=== PATIENT | male | born 1965 | race Two or more races ===

== ENCOUNTER 2021-06-20 20:51 | Emergency (ER) | payer SELFPAY ==
[~2021-06-20] VITALS: Ht 177.8 cm; Wt 75.0 kg
--- NOTE | 2021-06-20 21:20 | PHYS DOC ---
Past Medical History Additional Past Medical Histor: GRANULOMA Past Surgical History: Other Additional Past Surgical Histo: TUMOR REMOVAL General Adult EDM: Chief Complaint: NAUSEA/VOMITING/DIARRHEA HPI: HPI: Patient is a 55 year old male presents for evaluation due to nausea vomiting abdominal pain and chest pain. Patient states she woke up 063 0 hours with nausea and vomiting. Patient pain presented to the epigastric region and then radiated up to his chest. Patient has had multiple episodes of vomiting since this a.m. Patient denies any alcohol or drug abuse. Patient's epigastric abdominal pain does not radiate into the abdomen. Patient's chest pain is over the right and left lungs. Patient denies any associated shortness of breath. He has not had any episodes of diarrhea no history of fevers or chills. Patient has been vaccinated against COVID-19. Review of Systems: Review of Systems: Constitutional: Denies fever or chills. [] Eyes: Denies change in visual acuity. [] HENT: Denies nasal congestion or sore throat. [] Respiratory: Denies cough or shortness of breath. [] Cardiovascular: Denies chest pain or edema. [] GI: Denies abdominal pain, nausea, vomiting, bloody stools or diarrhea. [] : Denies dysuria. [] Musculoskeletal: Denies back pain or joint pain. [] Integument: Denies rash. [] Neurologic: Denies headache, focal weakness or sensory changes. [] Endocrine: Denies polyuria or polydipsia. [] Lymphatic: Denies swollen glands. [] Psychiatric: Denies depression or anxiety. [] Heart Score: C/O Chest Pain: Yes HEART Score for Chest Pain: HEART Score for Chest Pain Response (Comments) Value History Slighlty/Non-Suspicious 0 ECG Normal 0 Age >45 - < 65 1 Risk Factors No Risk Factors 0 Troponin >1-<3x Normal Limit 1 Total 2 Risk Factors: Risk Factors: DM, Current or recent (<one month) smoker, HTN, HLP, family history of CAD, obesity. Risk Scores: Score 0 - 3: 2.5% MACE over next 6 weeks - Discharge Home Score 4 - 6: 20.3% MACE over next 6 weeks - Admit for Clinical Observation Score 7 - 10: 72.7% MACE over next 6 weeks - Early Invasive Strategies Allergies: Allergies: Allergies Coded Allergies Type Severity Reaction Last Updated Verified No Known Drug Allergies 06/20/21 No Physical Exam: PE: Constitutional: Well developed, well nourished, no acute distress, non-toxic appearance. [] HENT: Normocephalic, atraumatic, bilateral external ears normal, oropharynx moist, no oral exudates, nose normal. [] Eyes: PERRLA, EOMI, conjunctiva normal, no discharge. [] Neck: Normal range of motion, no tenderness, supple, no stridor. [] Cardiovascular:Heart rate regular rhythm, no murmur [] Lungs & Thorax: Bilateral breath sounds clear to auscultation [] Abdomen: Bowel sounds normal, soft, no tenderness, no masses, no pulsatile masses. [] Skin: Warm, dry, no erythema, no rash. [] Back: No tenderness, no CVA tenderness. [] Extremities: No tenderness, no cyanosis, no clubbing, ROM intact, no edema. [] Neurologic: Alert and oriented X 3, normal motor function, normal sensory function, no focal deficits noted. [] Psychologic: Affect normal, judgement normal, mood normal. [] Current Patient Data: Vital Signs: Vital Signs Date Time Temp Pulse Resp B/P (MAP) Pulse Ox O2 Delivery O2 Flow Rate FiO2 06/20/21 21:00 98.0 69 16 176/81 (112) 99 Room Air 98.0 EKG: EKG: Performed at 2109 Rate 68 Normal sinus rhythm No ST elevation No ST depression No acute SC [] Radiology/Procedures: Radiology/Procedures: [] Impression: Exposure: One or more of the following individualized dose reduction techniques were utilized for this examination: 1. Automated exposure control 2. Adjustment of the mA and/or kV according to patient size 3. Use of iterative reconstruction technique. FINDINGS: CHEST: Visualized thyroid and esophagus are unremarkable. No lymphadenopathy in the chest by size criteria. Partially calcified nonenlarged right hilar lymph node. Normal cardiac size with no pericardial effusion. No coronary artery atherosclerotic calcifications. Normal caliber thoracic aorta and pulmonary arteries. No evidence of pulmonary embolism. Central airways are patent. No focal consolidation, pleural effusion or pneumothorax. Mild centrilobular pulmonary emphysema. Linear scarring in the right lower lobe. No suspicious pulmonary nodule. ABDOMEN/PELVIS: Liver, spleen, gallbladder, biliary ducts, pancreas and kidneys are unremarkable. Nodular thickening of the left adrenal gland without discrete nodule. Right adrenal gland is unremarkable. Mild aortoiliac atherosclerotic calcifications without narrowing or dilation. Mesenteric arteries and portal veins are patent. No ascites or pneumoperitoneum. No lymphadenopathy in the abdomen or pelvis by size criteria. No bowel obstruction. Normal appendix. Unremarkable urinary bladder. Coarse calcifications in the prostate. MUSCULOSKELETAL STRUCTURES: No acute osseous process or suspicious lesion. IMPRESSION: 1. No evidence of pulmonary embolism. 2. Mild centrilobular pulmonary emphysema. 3. No acute abnormality in the abdomen or pelvis. Course & Med Decision Making: Course & Med Decision Making Pertinent Labs and Imaging studies reviewed. (See chart for details) [] Treated with morphine Zofran and IV fluids. Work up essentially negative. Patient discharged home with prescription medications. Kelechi Disclaimer: Kelechi Disclaimer: This electronic medical record was generated, in whole or in part, using a voice recognition dictation system. Departure Departure Impression: Primary Impression: Nausea & vomiting Additional Impressions: Chest pain Abdominal pain Disposition: HOME / SELF CARE / HOMELESS Condition: STABLE Patient Instructions: Abdominal Pain, Chest Pain (Nonspecific), Nausea and Vomiting Scripts Hydrocodone/Acetaminophen (Hydrocodone-Acetamin 5-325 mg) 1 Each Tablet 1 EACH PO Q4-6HRS, #14 TAB Prov: AMEE BERMAN I DO 06/21/21 Ondansetron Hcl (ONDANSETRON HCL) 4 Mg Tablet 1 TAB PO PRN Q4HRS, #20 TAB 2 Refills Prov: AMEE BERMAN DO 06/21/21 AMEE BERMAN DO Jun 20, 2021 21:20
[2021-06-20 21:35] LABS: BASO # 0.1 x10^3/uL (0.0-0.2); BASO % 1 % (0-3); EOS % 0 % (0-3); HEMATOCRIT 50.5 % (39.0-53.0); HEMOGLOBIN 17.2 g/dL (13.0-17.5); LYMPH # 1.4 x10^3/uL (1.0-4.8); LYMPH % 13 % (24-48); MEAN CORPUSCULAR HEMOGLOBIN 32 pg (25-35); MEAN CORPUSCULAR HGB CONC 34 g/dL (31-37); MEAN CORPUSCULAR VOLUME 94 fL (79-100); MONO # 0.4 x10^3/uL (0.0-1.1); MONO % 4 % (0-9); NEUT # 8.7 x10^3/uL (1.8-7.7); NEUT % 83 % (31-73); PLATELET COUNT 229 x10^3/uL (140-400); RED BLOOD COUNT 5.36 x10^6/uL (4.30-5.70); RED CELL DISTRIBUTION WIDTH 12.8 % (11.5-14.5); WHITE BLOOD COUNT 10.5 x10^3/uL (4.0-11.0)
[2021-06-20 21:50] LABS: INFLUENZA A PATIENT NEGATIVE (NEGATIVE); INFLUENZA B PATIENT NEGATIVE (NEGATIVE)
[2021-06-20] MEDS ORDERED: ONDANSETRON PF 4 MG/2 ML VIAL. IVP ONE (22:00)
[2021-06-20] MEDS ORDERED: MORPHINE SULFATE 4 MG/ML INJ. IVP ONE ×2 (22:00→22:15)
[2021-06-20 22:38] LABS: CALCIUM 10.3 mg/dL (8.5-10.1); CREATININE 1.1 mg/dL (0.7-1.3)
[2021-06-20 22:44] LABS: ALBUMIN 4.6 g/dL (3.4-5.0); ALBUMIN/GLOBULIN RATIO 1.2 (1.0-1.7); TOTAL BILIRUBIN 0.5 mg/dL (0.2-1.0); TOTAL PROTEIN 8.4 g/dL (6.4-8.2)
--- NOTE | 2021-06-20 22:52 | RAD ---
XR CHEST 1V History: Reason: chest pain / Spl. Instructions: / History: Comparison: None. Findings: No consolidation or pleural effusion. Normal heart size. No pneumothorax. Impression: 1. No acute cardiopulmonary process. Electronically signed by: Aleksandr Salinas DO (06/20/2021 10:50 PM) [facility]
[2021-06-20] MEDS ORDERED: IOHEXOL 350 MG/ML 100 ML VIAL. IV ONE (23:15)
[2021-06-20] MEDS ORDERED: CONTRAST GIVEN. MC PRN (23:15)
[2021-06-21] MEDS ORDERED: ONDANSETRON PF 4 MG/2 ML VIAL. IVP ONE ×2 (01:00→02:30)
--- NOTE | 2021-06-21 01:19 | RAD ---
EXAMINATION: CTA chest, abdomen and pelvis with IV contrast. INDICATION:55 years, Male, chest pain, abdominal pain, nausea and vomiting. TECHNIQUE: Axial CTA images of the chest, abdomen and pelvis were obtained. MIP Coronal and sagittal reformatted performed. COMPARISON: None. Exposure: One or more of the following individualized dose reduction techniques were utilized for thi s examination: 1. Automated exposure control 2. Adjustment of the mA and/or kV according to patient size 3. Use of iterative reconstruction technique. FINDINGS: CHEST: Visualized thyroid and esophagus are unremarkable. No lymphadenopathy in the chest by size criteria. Partially calcified nonenlarged right hilar lymph node. Normal cardiac size with no pericardial effus ion. No coronary artery atherosclerotic calcifications. Normal caliber thoracic aorta and pulmonary a rteries. No evidence of pulmonary embolism. Central airways are patent. No focal consolidation, pleural effusion or pneumothorax. Mild centrilobu lar pulmonary emphysema. Linear scarring in the right lower lobe. No suspicious pulmonary nodule. ABDOMEN/PELVIS: Liver, spleen, gallbladder, biliary ducts, pancreas and kidneys are unremarkable. Nodular thickening of the left adrenal gland without discrete nodule. Right adrenal gland is unremarkable. Mild aortoili ac atherosclerotic calcifications without narrowing or dilation. Mesenteric arteries and portal veins are patent. No ascites or pneumoperitoneum. No lymphadenopathy in the abdomen or pelvis by size criteria. No bowel obstruction. Normal appendix. Unremarkable urinary bladder. Coarse calcifications in the prostate. MUSCULOSKELETAL STRUCTURES: No acute osseous process or suspicious lesion. IMPRESSION: 1. No evidence of pulmonary embolism. 2. Mild centrilobular pulmonary emphysema. 3. No acute abnormality in the abdomen or pelvis. Electronically signed by: Perla Levine MD (06/21/2021 1:16 AM) [facility]
[2021-06-21 02:00] VITALS: BP 149/79
[2021-06-21] MEDS ORDERED: ONDA-84 PO ×2 (02:12→02:30)
[2021-06-21] MEDS ORDERED: HYDR-2759 PO ×2 (02:12→02:30)
[2021-06-21] MEDS ORDERED: KETOROLAC 30 MG/ML VIAL. IVP ONE (02:30)
--- NOTE | 2021-06-21 05:22 | EKG ---
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
[2021-06-22] MEDS ORDERED: METO10TA81 PO (15:51)
== END 2021-06-21 02:59 | disposition home or self-care (01) ==
LOC: ER 20:51
DX: R11.2 Nausea with vomiting, unspecified (principal); Z20.822 Contact with and (suspected) exposure to COVID-19; R10.13 Epigastric pain; R07.89 Other chest pain
CPT/HCPCS: 36415; 71045; 71275; 74177; 80053; 84484; 85025; 87426; 87804; 93005; 96374; 96375; 96376; 99285; J1885; J2270; J2405; Q9967

== ENCOUNTER 2021-06-22 11:56 | Emergency (ER) | payer SELFPAY ==
[~2021-06-22] VITALS: Ht 177.8 cm; Wt 75.0 kg
[~2021-06-22 11:56] MED LIST: HYDR-2759 PO; ONDA-84 PO
[2021-06-22] MEDS ORDERED: IV NORMAL SALINE 1000ML BAG 1,000 ML IV ONE (12:15)
[2021-06-22] MEDS ORDERED: METOCLOPRAMIDE HCL 10 MG/2 ML VIAL. IVP ONE (12:15)
[2021-06-22] MEDS ORDERED: HALOPERIDOL LACTATE 5 MG/ML VIAL. IM ONE (12:30)
[2021-06-22 12:32] LABS: BASO % 0 % (0-3); EOS % 0 % (0-3); HEMATOCRIT 47.4 % (39.0-53.0); HEMOGLOBIN 16.2 g/dL (13.0-17.5); LYMPH # 1.1 x10^3/uL (1.0-4.8); LYMPH % 9 % (24-48); MEAN CORPUSCULAR HEMOGLOBIN 32 pg (25-35); MEAN CORPUSCULAR HGB CONC 34 g/dL (31-37); MEAN CORPUSCULAR VOLUME 94 fL (79-100); MONO # 0.9 x10^3/uL (0.0-1.1); MONO % 8 % (0-9); NEUT # 10.2 x10^3/uL (1.8-7.7); NEUT % 83 % (31-73); PLATELET COUNT 215 x10^3/uL (140-400); RED BLOOD COUNT 5.07 x10^6/uL (4.30-5.70); RED CELL DISTRIBUTION WIDTH 13.1 % (11.5-14.5); WHITE BLOOD COUNT 12.3 x10^3/uL (4.0-11.0)
[2021-06-22 12:41] LABS: CALCIUM 9.6 mg/dL (8.5-10.1); CREATININE 1.3 mg/dL (0.7-1.3); GFR 57.7; POTASSIUM 3.6 mmol/L (3.5-5.1)
[2021-06-22 12:44] LABS: ALBUMIN 4.4 g/dL (3.4-5.0); ALBUMIN/GLOBULIN RATIO 1.2 (1.0-1.7); TOTAL BILIRUBIN 0.6 mg/dL (0.2-1.0)
[2021-06-22] MEDS ORDERED: IOHEXOL 350 MG/ML 100 ML VIAL. ONE (14:57)
[2021-06-22 15:00] VITALS: BP 136/78
[2021-06-22] MEDS ORDERED: METO10TA81 PO (15:51)
--- NOTE | 2021-06-22 15:51 | PHYS DOC ---
Past Medical History Additional Past Medical Histor: GRANULOMA Past Surgical History: Other Additional Past Surgical Histo: TUMOR REMOVAL Smoking Status: Never Smoker Alcohol Use: Rarely General Adult EDM: Chief Complaint: GI PROBLEM HPI: HPI: Patient is a 55-year-old male who present to ER due to nausea vomiting and abdominal cramping. Patient said he abuses marijuana for a long time, he then stopped, then last month he stopped doing marijuana again. Patient was seen here 2 days ago due to nausea vomiting and abdominal pain. Patient had work-up in the ER including lab work, CT scan of chest abdomen pelvis did not show any acute problem. Patient was discharged home with pain medication and nausea medication. Patient said he took the medication but did not feel any better, continued to vomit so he came here by EMS for evaluation patient denies suicidal ideation, denies homicidal ideation Review of Systems: Review of Systems: Constitutional: Denies fever or chills. [] Eyes: Denies change in visual acuity. [] HENT: Denies nasal congestion or sore throat. [] Respiratory: Denies cough or shortness of breath. [] Cardiovascular: Denies chest pain or edema. [] GI: Positive for nausea vomiting and abdominal cramping [] : Denies dysuria. [] Musculoskeletal: Denies back pain or joint pain. [] Integument: Denies rash. [] Neurologic: Denies headache, focal weakness or sensory changes. [] Endocrine: Denies polyuria or polydipsia. [] Lymphatic: Denies swollen glands. [] Psychiatric: Denies depression or anxiety. [] Heart Score: C/O Chest Pain: N/A Risk Factors: Risk Factors: DM, Current or recent (<one month) smoker, HTN, HLP, family history of CAD, obesity. Risk Scores: Score 0 - 3: 2.5% MACE over next 6 weeks - Discharge Home Score 4 - 6: 20.3% MACE over next 6 weeks - Admit for Clinical Observation Score 7 - 10: 72.7% MACE over next 6 weeks - Early Invasive Strategies Current Medications: Current Medications Medications (Trade) Dose Ordered Sig/Jordyn Start Time Stop Time Status Last Admin Dose Admin Haloperidol Lactate (Haldol Inj) 5 mg 1X ONCE 06/22/21 12:30 06/22/21 12:38 DC 06/22/21 12:30 5 MG Iohexol (Omnipaque 350 Mg/ml) 100 ml STK-MED ONCE 06/22/21 14:57 06/22/21 14:57 DC Lorazepam (Ativan Inj) 1 mg 1X ONCE 06/22/21 12:30 06/22/21 12:38 DC 06/22/21 12:30 1 MG Metoclopramide HCl (Reglan Vial) 10 mg 1X ONCE 06/22/21 12:15 06/22/21 12:38 DC 06/22/21 12:15 10 MG Sodium Chloride 1,000 ml @ 1,000 mls/hr 1X ONCE 06/22/21 12:15 06/22/21 13:14 DC 06/22/21 12:15 1,000 MLS/HR Allergies: Allergies: Allergies Coded Allergies Type Severity Reaction Last Updated Verified No Known Drug Allergies 06/22/21 No Physical Exam: PE: Constitutional: Well developed, well nourished, no acute distress, non-toxic appearance. [] HENT: Normocephalic, atraumatic, bilateral external ears normal, oropharynx dry, no oral exudates, nose normal. [] Eyes: PERRLA, EOMI, conjunctiva normal, no discharge. [] Neck: Normal range of motion, no tenderness, supple, no stridor. [] Cardiovascular:Heart rate regular rhythm, no murmur [] Lungs & Thorax: Bilateral breath sounds clear to auscultation [] Abdomen: Bowel sounds normal, soft, no tenderness, no masses, no pulsatile masses. [] Skin: Warm, dry, no erythema, no rash. [] Back: No tenderness, no CVA tenderness. [] Extremities: No tenderness, no cyanosis, no clubbing, ROM intact, no edema. [] Neurologic: Alert and oriented X 3, normal motor function, normal sensory function, no focal deficits noted. [] Psychologic: Affect normal, judgement normal, mood normal. [] Current Patient Data: Labs: Laboratory Tests Test 06/22/21 12:11 White Blood Count 12.3 x10^3/uL (4.0-11.0) H Red Blood Count 5.07 x10^6/uL (4.30-5.70) Hemoglobin 16.2 g/dL (13.0-17.5) Hematocrit 47.4 % (39.0-53.0) Mean Corpuscular Volume 94 fL (79-100) Mean Corpuscular Hemoglobin 32 pg (25-35) Mean Corpuscular Hemoglobin Concent 34 g/dL (31-37) Red Cell Distribution Width 13.1 % (11.5-14.5) Platelet Count 215 x10^3/uL (140-400) Neutrophils (%) (Auto) 83 % (31-73) H Lymphocytes (%) (Auto) 9 % (24-48) L Monocytes (%) (Auto) 8 % (0-9) Eosinophils (%) (Auto) 0 % (0-3) Basophils (%) (Auto) 0 % (0-3) Neutrophils # (Auto) 10.2 x10^3/uL (1.8-7.7) H Lymphocytes # (Auto) 1.1 x10^3/uL (1.0-4.8) Monocytes # (Auto) 0.9 x10^3/uL (0.0-1.1) Eosinophils # (Auto) 0.0 x10^3/uL (0.0-0.7) Basophils # (Auto) 0.0 x10^3/uL (0.0-0.2) Sodium Level 140 mmol/L (136-145) Potassium Level 3.6 mmol/L (3.5-5.1) Chloride Level 101 mmol/L (98-107) Carbon Dioxide Level 23 mmol/L (21-32) Anion Gap 16 (6-14) H Blood Urea Nitrogen 27 mg/dL (8-26) H Creatinine 1.3 mg/dL (0.7-1.3) Estimated GFR (Cockcroft-Gault) 57.7 BUN/Creatinine Ratio 21 (6-20) H Glucose Level 145 mg/dL (70-99) H Calcium Level 9.6 mg/dL (8.5-10.1) Magnesium Level 2.0 mg/dL (1.8-2.4) Total Bilirubin 0.6 mg/dL (0.2-1.0) Aspartate Amino Transferase (AST) 36 U/L (15-37) Alanine Aminotransferase (ALT) 41 U/L (16-63) Alkaline Phosphatase 88 U/L (46-116) Total Protein 8.0 g/dL (6.4-8.2) Albumin 4.4 g/dL (3.4-5.0) Albumin/Globulin Ratio 1.2 (1.0-1.7) Lipase 42 U/L (73-393) L Ethyl Alcohol Level < 10 mg/dL (0-10) Laboratory Tests 06/22/21 12:11 Laboratory Tests 06/22/21 12:11 Vital Signs: Vital Signs Date Time Temp Pulse Resp B/P (MAP) Pulse Ox O2 Delivery O2 Flow Rate FiO2 06/22/21 11:56 98.5 80 18 184/99 (127) 97 Room Air 98.5 EKG: EKG: [] Radiology/Procedures: Radiology/Procedures: [] Course & Med Decision Making: Course & Med Decision Making Pertinent Labs and Imaging studies reviewed. (See chart for details) Patient is a 55-year-old male who present to ER due to nausea vomiting and abdominal cramping. Patient said he abuses marijuana for a long time, he then stopped, then last month he stopped doing marijuana again. Patient was seen here 2 days ago due to nausea vomiting and abdominal pain. Patient had work-up in the ER including lab work, CT scan of chest abdomen pelvis did not show any acute problem. Patient was discharged home with pain medication and nausea medication. Patient said he took the medication but did not feel any better, continued to vomit so he came here by EMS for evaluation patient denies suicidal ideation, denies homicidal ideation. Patient was given medication in the ER, he felt much better. Patient will be discharged home. I advised patient to stop using marijuana because that causes his condition cannabinoid hyperemesis syndrome. Patient is here to take him home. Patient is amenable to plan of care for Kelechi Disclaimer: Kelechi Disclaimer: This electronic medical record was generated, in whole or in part, using a voice recognition dictation system. Departure Departure Impression: Primary Impression: Cannabinoid hyperemesis syndrome Disposition: HOME / SELF CARE / HOMELESS Condition: IMPROVED Referrals: NO PCP (PCP) Please follow up with [facility] this week. [address], [address] [place] [address] Phone number: [phone] Patient Instructions: Cyclic Vomiting Syndrome Additional Instructions: Thank you for visiting our Emergency Department. We appreciate you trusting us with your care. If any additional problems come up don't hesitate to return to visit us. Please follow up with your primary care provider so they can plan additional care if needed and know about the problem that you had. If symptoms worsen come back to the Emergency Department. Any concerning symptoms that start such as chest pain, shortness of air, weakness or numbness on one side of the body, running high fevers or any other concerning symptoms return to the ER. Scripts Metoclopramide Hcl (REGLAN) 10 Mg Tablet 1 TAB PO QID PRN for NAUSEA for 10 Days, #40 TAB 0 Refills before food and bedtime Prov: MARCELLE AGUILAR DO 06/22/21 MARCELLE AGUILAR DO Jun 22, 2021 15:51
== END 2021-06-22 16:13 | disposition home or self-care (01) ==
LOC: ER 11:56
DX: F12.188 Cannabis abuse with other cannabis-induced disorder (principal); F12.10 Cannabis abuse, uncomplicated
CPT/HCPCS: 36415; 80053; 83690; 83735; 85025; 96361; 96372; 96374; 96375; 99284; G0480; J1630; J2060; J2765; J7030